=== PATIENT | male | born 1980 | race African-American/Black ===

== ENCOUNTER 2019-01-19 09:03 | Emergency (ER) | payer OTHER ==
[~2019-01-19] VITALS: Ht 182.9 cm; Wt 106.6 kg
[2019-01-19] MEDS ORDERED: INDOMETHACIN50 MG PO (09:21)
[2019-01-19] MEDS ORDERED: CYCLOBENZAPRINE10 MG PO (09:21)
== END 2019-01-19 09:56 | disposition home or self-care (01) ==
LOC: ED 09:03
DX: S39.92XA Unspecified injury of lower back, initial encounter (principal); X50.0XXA Overexertion from strenuous movement or load, initial encounter; F17.200 Nicotine dependence, unspecified, uncomplicated
CPT/HCPCS: 96372; 99283-25; J1885; J2550

== ENCOUNTER 2020-10-12 15:53 | Emergency (ER) | payer OTHER ==
[~2020-10-12] VITALS: Ht 182.9 cm; Wt 106.6 kg
[~2020-10-12 15:53] MED LIST: CYCLOBENZAPRINE10 MG PO; INDOMETHACIN50 MG PO
== END 2020-10-12 16:20 | disposition home or self-care (01) ==
LOC: ED 15:53
DX: R09.89 Other specified symptoms and signs involving the circulatory and respiratory systems (principal)

== ENCOUNTER 2022-03-28 21:28 | Emergency (ER) | payer OTHER ==
[~2022-03-28] VITALS: Ht 182.9 cm; Wt 106.6 kg
== END 2022-03-29 02:00 | disposition home or self-care (01) ==
LOC: ED 21:28
DX: F19.10 Other psychoactive substance abuse, uncomplicated (principal); F17.200 Nicotine dependence, unspecified, uncomplicated; Z79.899 Other long term (current) drug therapy
CPT/HCPCS: 96372; 99283; J2060

== ENCOUNTER 2024-09-24 22:07 | Emergency (ER) | payer OTHER ==
[~2024-09-24] VITALS: Ht 182.9 cm; Wt 100.0 kg
[~2024-09-24 22:07] MED LIST changes: +CLEOCIN HCL300 MG PO; +DISKETS40 MG PO
[2024-09-24] MEDS ORDERED: diazePAM 10 MG/2 ML SYR IM ONE (22:30)
[2024-09-24] MEDS ORDERED: KETOROLAC TROMETHAMINE 60 MG/2 ML VIAL IM ONE (22:30)
[2024-09-24 22:38] LABS: BILIRUBIN, URINE NEGATIVE (negative); BLOOD/HGB, URINE NEGATIVE (Negative); KETONE, URINE NEGATIVE (Negative); LEUK ESTERASE, URINE NEGATIVE (negative); NITRITE, URINE NEGATIVE (negative)
[2024-09-24] MEDS ORDERED: methylPREDNISolone 4 MG HOME.PACK PO ONE (22:45)
[2024-09-24] MEDS ORDERED: CYCLOBENZAPRINE HCL 10 MG HOME.PACK PO ONE (22:45)
[2024-09-24] MEDS ORDERED: CYCLOBENZAPRINE10 MG PO (22:47)
[2024-09-24 23:06] VITALS: BP 136/82
== END 2024-09-24 23:06 | disposition home or self-care (01) ==
LOC: ED 22:07
PROVIDERS: Family Medicine
DX: M54.50 Low back pain, unspecified (principal); F17.200 Nicotine dependence, unspecified, uncomplicated; Z79.899 Other long term (current) drug therapy
CPT/HCPCS: 72100; 81003; 96372; 99283-25; J1885; J3360